=== PATIENT | male | born 1990 | race Caucasian/White ===

== ENCOUNTER 2017-02-09 19:40 | Emergency (ER) | payer OTHER ==
[~2017-02-09] VITALS: Ht 170.2 cm; Wt 68.5 kg
[~2017-02-09 19:40] MED LIST: COLACE100 MG PO; FAMOTIDINE20 MG PO; OMEPRAZOLE DR20 M1 PO; TRAMADOL HCL50 MG PO
[2017-02-09 20:37] VITALS: BP 100/50
== END 2017-02-09 20:50 | disposition home or self-care (01) ==
LOC: ED 19:40
DX: S06.0X9A Concussion with loss of consciousness of unspecified duration, initial encounter (principal); W20.8XXA Other cause of strike by thrown, projected or falling object, initial encounter; Y93.89 Activity, other specified; Y92.89 Other specified places as the place of occurrence of the external cause; Y99.8 Other external cause status

== ENCOUNTER 2017-05-06 12:22 | Emergency (ER) | payer OTHER ==
[~2017-05-06] VITALS: Ht 170.2 cm; Wt 67.3 kg
[2017-05-06 12:24] VITALS: Ht 170.2 cm; Wt 67.3 kg
[2017-05-06 13:29] LABS: BASOPHIL % 0.2 % (0-2); PLATELET COUNT 208 x10^3mcL (130-400); RED CELL DISTRIBUTION WIDTH 12.3 % (11.5-14.5)
[2017-05-06 13:32] LABS: CALCIUM 9.1 mg/dL (8.5-10.1); CARBON DIOXIDE 23.5 mmol/L (21-32); CHLORIDE SERUM 98 mmol/L (98-107); GFR1 > 60 mL/min; GLUCOSE SERUM 99 mg/dL (74-106); POTASSIUM SERUM 3.8 mmol/L (3.5-5.1); SODIUM SERUM 137 mmol/L (136-145)
[2017-05-06 13:36] LABS: ALKALINE PHOSPHATASE 75 U/L (46-116); ALT/SGPT 56 U/L (16-63); AST/SGOT 43 U/L (15-37); BILIRUBIN TOTAL 3.8 mg/dL (0.20-1.00)
[2017-05-06 13:37] LABS: ALBUMIN 5.1 g/dL (3.4-5.0); TOTAL PROTEIN, SERUM 8.6 g/dL (6.4-8.2)
[2017-05-06 14:02] LABS: AMPHETAMINE QUAL UR NONE DETECTED (NEG <=1000)
[2017-05-06 15:49] VITALS: BP 145/62
== END 2017-05-06 15:49 | disposition home or self-care (01) ==
LOC: ED 12:22
PROVIDERS: Emergency Medicine
DX: B34.9 Viral infection, unspecified (principal); F17.210 Nicotine dependence, cigarettes, uncomplicated
CPT/HCPCS: 36600; 83880; 85378; G0480; J2405; J3490; J7030; J8597; Q0092

== ENCOUNTER 2017-12-26 15:02 | Emergency (ER) | payer OTHER ==
[~2017-12-26] VITALS: Ht 170.2 cm; Wt 72.3 kg
[2017-12-26 15:09] VITALS: BP 91/51; Ht 170.2 cm; Wt 72.3 kg
== END 2017-12-26 15:55 | disposition home or self-care (01) ==
LOC: ED 15:02
DX: R05 Cough (principal)

== ENCOUNTER 2019-02-18 22:24 | Emergency (ER) | payer SELFPAY ==
[~2019-02-18] VITALS: Ht 170.2 cm; Wt 77.6 kg
[2019-02-18 22:34] VITALS: Ht 170.2 cm; Wt 77.6 kg
[2019-02-18 23:42] VITALS: BP 99/59
== END 2019-02-18 23:42 | disposition home or self-care (01) ==
LOC: ED 22:24
DX: M79.661 Pain in right lower leg (principal); W22.8XXA Striking against or struck by other objects, initial encounter; Y93.89 Activity, other specified; Y92.89 Other specified places as the place of occurrence of the external cause; Y99.8 Other external cause status
CPT/HCPCS: Q0092